=== PATIENT | male | born 1985 | race Caucasian/White ===

== ENCOUNTER → 2024-02-27 07:27 | Outpatient (REF) | payer BC, SELFPAY | LOC: HWRAD 07:27 | PROVIDERS: ATTENDING PHYSICIAN Internal Medicine Gastroenterology; FAMILY PHYSICIAN Family Medicine | DX: R11.0 Nausea (principal) | CPT/HCPCS: 76700 ==

== ENCOUNTER 2024-03-14 06:25 | Day surgery (SDC) | payer BC, SELFPAY | END 2024-03-14 10:31 | LOC: GI 06:25 | PROVIDERS: ATTENDING PHYSICIAN Internal Medicine Gastroenterology | DX: K31.7 Polyp of stomach and duodenum (principal); K22.89 Other specified disease of esophagus; K29.70 Gastritis, unspecified, without bleeding; K20.90 Esophagitis, unspecified without bleeding; K31.89 Other diseases of stomach and duodenum | CPT/HCPCS: 43239; 88305; 88342 ==

== ENCOUNTER 2024-03-16 08:30 | Emergency (ER) | payer BC, SELFPAY ==
[2024-03-16 08:49] VITALS: BP 129/87
[2024-03-16 09:11] LABS: % Basophils 1.1 % (0-2); % Eosinophils 0.9 % (0-6); % Immature Granulocytes 0.4 % (0-0.5); % Lymphocytes 24.7 % (20.5-51.1); % Monocytes 9.4 % (1.7-9.3); % Neutrophils 63.5 % (42.2-75.2); Absolute Basophils 0.1 10^3/uL (0-0.2); Absolute Lymphocytes 1.2 10^3/uL (1.2-3.4); Absolute Monocytes 0.4 10^3/uL (0.1-0.6); Hematocrit 38.4 % (39.0-52.0); Hemoglobin 14.1 g/dL (13.0-18.0); Mean Corp Hgb Conc. 36.7 g/dL (33.0-37.0); Mean Corpuscular Hgb 31.5 pg (27.0-31.0); Mean Corpuscular Volume 85.9 fL (80.0-94.0); Mean Platelet Volume 10.4 fL (7.4-10.4); Nucleated Red Blood Cells % 0 % (-); Platelet Count 176 10^3/uL (130-400); Red Blood Cell Count 4.47 10^6/uL (4.70-6.10); Red Cell Dist. Width 11.4 % (11.5-14.5); White Blood Cell Count 4.7 10^3/uL (4.8-10.8)
[2024-03-16 09:26] LABS: ALT (SGPT) 20 U/L (0-50); AST (SGOT) 22 U/L (17-59); Albumin 4.8 g/dl (3.5-5.0); Alkaline Phosphatase 64 U/L (38-126); Blood Urea Nitrogen 22 mg/dl (9-20); Calcium 9.4 mg/dl (8.4-10.2); Carbon Dioxide 31 mmol/L (22-30); Chloride 97 mmol/L (98-107); Glucose 92 mg/dl (70-99); Potassium 4.1 mmol/L (3.5-5.1); Sodium 137 mmol/L (135-145); Total Bilirubin 1.6 mg/dl (0.2-1.3); Total Protein 6.6 g/dl (6.3-8.2); eGFR > 60.00
[2024-03-16 11:40] VITALS: BP 112/70
[2024-03-16 12:21] VITALS: BP 126/69
[2024-03-16 12:24] VITALS: BMI 22.4
--- NOTE | 2024-03-16 12:35 | ED.GENMED ---
History of Present Illness
General
Chief Complaint: Rectal Bleeding
Source: patient
Exam Limitations: none
Time Seen by Provider: 03/16/24 11:58
Nursing documentation reviewed up to this point in time: agreed with
History of Present Illness
History of Present Illness:
39 y/o M with h/o gstritis on omeoprazole 20 mg bid
had endosocpy on 12/[address] lara for some previous epigastric pain that had resolved
he had no issues that day
on 12/13 in the morning he had a black tarry stool x 1. spoke with dr. lara who told him if it continued to come in
he had another BM today that was similar dark stool
no vomiting blood, wakness, pain, lightheadedness, near syncope, bleeding from anywhere else
Past History
Past History
ED Past Medical History: Other (HYDOCELE) and Other (substance abue on suboxone)
Social History
Tobacco: Non-smoker
Alcohol: Occasional
Drug: None
Living: with family
Review of Systems
Review of Systems
Allergies reviewed?: Yes
All Other Systems: Not applicable
Phy Exam
Physical Exam
Physical Exam:
GENERAL: Alert , in no apparent distress
EYE: pupils equal and reactive
NECK: Supple
ENT: o/p clr, mmm.
CARDIAC: Regular rate and rhythm .
LUNGS: Clear breath sounds bilaterally, no acute respiratory distress, no wheezes/rales/rhonchi
ABDOMEN: Soft, without focal tenderness, no r/g, no cvat, normal bowel sounds
rectal: no hemorrhoids
heme + dark brown stool
NEUROLOGICAL: Alert and oriented, no focal neuro deficits
SKIN: Warm and dry, skin intact.
MUSCULOSKELETAL: No edema, well perfused. neg nikita's sign
PSYCH: Normal and appropriate interaction.
Course
Orders/Labs/Results
Orders:
Orders
03/16/24 09:00
Complete Blood Count/With Diff Urgent
Comprehensive Metabolic Panel Urgent
Abnormal Lab Results
03/16/24
09:00
WBC 4.7 L 10^3/uL
(4.8-10.8)
RBC 4.47 L 10^6/uL
(4.70-6.10)
Hct 38.4 L %
(39.0-52.0)
MCH 31.5 H pg
(27.0-31.0)
RDW 11.4 L %
(11.5-14.5)
Monocytes % 9.4 H %
(1.7-9.3)
Chloride 97 L mmol/L
(98-107)
Carbon Dioxide 31 H mmol/L
(22-30)
BUN 22 H mg/dl
(9-20)
Total Bilirubin 1.6 H mg/dl
(0.2-1.3)
03/16/24 09:00
03/16/24 09:00
Vital Signs
Initial and Last Documented VS:
Initial Vital Signs
Temp Pulse Resp BP Pulse Ox
36.6 C 93 18 129/87 100
03/16/24 08:49 03/16/24 08:49 03/16/24 08:49 03/16/24 08:49 03/16/24 08:49
Last Documented Vital Signs
Temp Pulse Resp BP Pulse Ox
36.7 C 77 16 126/69 100
03/16/24 11:40 03/16/24 12:25 03/16/24 11:40 03/16/24 12:21 03/16/24 12:25
MDM/Problems Addressed
Differential Diagnosis Includes:
GI bleeding, gastritis
MDM/Problems Addressed:
39 y/o M with dark stool
after endoscopy
1 episode yeterday and 1 today
not signfiicant size
no pain
on PPI
d/w his GI who told him to increas the PPI for1 week 40 mg bid but pt did not do that yet
on exam
vitals stable
bun 22
hg stable
rectal heme pos dark brown stool
d/w Gi
since no active episodes, not large volume stable vitals and hg ok for d/c home
inc PPI as instructed
return precautions
*Critical Care Note
Total Time (30-74mins, 75-104mins- exclusive of procedures): Not Applicable
ED Attending Note
-
Portions of this chart may have been created with voice recognition software.� Occasional wrong word or��sound alike� substitutions may have occurred due to the inherent limitations of voice recognition software.
Discharge Plan
Departure
Patient Disposition: Home (Routine Discharge)
Date of Disposition: 03/16/24
Time of Disposition: 12:53
Patient with high blood pressure during this ER visit?: No
Condition: Fair
Covid-19: Not Applicable
Discharge Problem:
GI (gastrointestinal bleed)
Instructions: Gastrointestinal Bleeding (DC)
Prescriptions:
No Action
clonidine HCl 0.1 MG tablet
0.025 mg PO HS
omeprazole 20 mg Tablet,Delayed Release (Dr/Ec)
20 mg PO DAILY
Lion's Piotr Capsules
1 cap PO DAILY
cyanocobalamin (vitamin B-12) 500 mcg Tablet
500 mcg PO DAILY
cholecalciferol (vitamin D3) [Vitamin D3] 25 mcg (1,000 unit) Tablet
25 mcg PO DAILY
magnesium glycinate 100 mg Tablet
250 mg PO HS
ashwagandha extract 500 mg Capsule
250 mg PO DAILY
DGL 25-50 mg Tablet,Chewable
1 tab PO DAILY
[place] Gum Capsules
100 mg PO DAILY
Referrals:
Remy Anne MD [Family Provider] -
Winnie Verma MD [Active] - Follow up in 5-7 days
Activity Restrictions/Additional Instructions:
DR LARA SAID TO INCREASE YOUR OMEPRAZOLE TO 40 MG TWICE A DAY FOR 1 WEEK
THEN GO BACK TO 20 MG TWICE A DAY
YOUR BLOOD WORK WAS REASSURING
WATCH FOR MORE EPISODES: IF MORE FREQUENT OR LARGER VOLUME OR PAIN OR LIGHTHEADEDNESS THEN RETURN
HOPEFULY THIS IS SMALL AMOUNT OF RESIDUAL AND IT WILL STOP
RETURN FOR ANY CONCERNS
Interventions
Interventions:
*Risk Screen - Suicide Last Done: 03/16/24 08:49
*General Assessment Last Done: 03/16/24 08:49
*Neglect/Abuse Screening Last Done: 03/16/24 08:49
*ED COVID-19 Vaccine History Last Done: 03/16/24 12:25
*Nursing Disposition Last Done: 03/16/24 13:16
JC-Ncqybh-Loaglccuiq Assessment Last Done: 03/16/24 12:21
Discharge Date and Time
Discharge Date/Time: 03/16/24 13:16
Print Language: [place]
== END 2024-03-16 13:16 | disposition home or self-care (01) ==
LOC: EMR 08:30
PROVIDERS: EMERGENCY PHYSICIAN Emergency Medicine; FAMILY PHYSICIAN Family Medicine
DX: K92.1 Melena (principal)
CPT/HCPCS: 99283; 80053; 85025

== ENCOUNTER 2024-03-18 11:28 | Emergency (ER) | payer BC, SELFPAY ==
[2024-03-18 11:30] VITALS: BP 124/76
[2024-03-18 12:55] VITALS: BP 108/67
[2024-03-18 13:00] VITALS: BP 110/66
[2024-03-18 13:07] LABS: Hematocrit 36.2 % (39.0-52.0); Hemoglobin 13.1 g/dL (13.0-18.0); Mean Corp Hgb Conc. 36.2 g/dL (33.0-37.0); Mean Corpuscular Hgb 31.1 pg (27.0-31.0); Mean Platelet Volume 10.6 fL (7.4-10.4); Platelet Count 201 10^3/uL (130-400); Red Blood Cell Count 4.21 10^6/uL (4.70-6.10); Red Cell Dist. Width 11.5 % (11.5-14.5); White Blood Cell Count 7.3 10^3/uL (4.8-10.8)
[2024-03-18 13:16] LABS: INR 1.02; PT 13.7 Sec (11.4-14.6)
[2024-03-18 13:20] LABS: ALT (SGPT) 20 U/L (0-50); AST (SGOT) 21 U/L (17-59); Albumin 4.5 g/dl (3.5-5.0); Alkaline Phosphatase 64 U/L (38-126); Blood Urea Nitrogen 15 mg/dl (9-20); Calcium 9.2 mg/dl (8.4-10.2); Carbon Dioxide 31 mmol/L (22-30); Chloride 98 mmol/L (98-107); Glucose 97 mg/dl (70-99); Potassium 4.3 mmol/L (3.5-5.1); Sodium 138 mmol/L (135-145); Total Bilirubin 1.1 mg/dl (0.2-1.3); Total Protein 6.3 g/dl (6.3-8.2); eGFR > 60.00
--- NOTE | 2024-03-18 13:24 | ED.GENMED ---
History of Present Illness
General
Chief Complaint: Rectal Bleeding
Source: patient
Time Seen by Provider: 03/18/24 11:56
History of Present Illness
History of Present Illness:
39-year-old male with recently diagnosed gastritis, status post upper endoscopy also found to have gastric polyps that were biopsied, presenting back to the emergency department after being seen in the ER 2 days ago for darker stools following the
endoscopy. Patient states that today he felt a little bit more lightheaded and was concerned for worsening prompting him to come to the ER for further evaluation. Patient denies any abdominal pain, nausea, vomiting/hematemesis, generalized
weakness or fatigue. He denies any concurrent use of NSAIDs or anticoagulants.
Past History
Past History
ED Past Medical History: Other (HYDOCELE) and Other (substance abue on suboxone)
ED Past Surgical History: None
Social History
Tobacco: Non-smoker
Alcohol: Occasional
Drug: None
Personal: Single
Living: with family
Review of Systems
Review of Systems
All Other Systems: ROS reviewed and negative except as documented in HPI and ROS
Phy Exam
Physical Exam
Physical Exam:
GENERAL: Alert , in no apparent distress
EYE: clear conjunctiva b/l
HEAD: NCAT
ENT: mmm.
CARDIAC: Regular rate and rhythm .
LUNGS: Clear breath sounds bilaterally, no acute respiratory distress, no wheezes/rales/rhonchi
ABDOMEN: Soft, without focal tenderness, no r/g, no cvat
NEUROLOGICAL: Alert and oriented
SKIN: Warm and dry, skin intact.
MUSCULOSKELETAL: well perfused.
PSYCH: Normal and appropriate interaction.
Scores
Heart Failure Risk
Heart Failure Risk Score: Not Applicable
Heart Score for Chest Pain Patients
STEMI patient?: Not applicable
Withdrawal Assessment of Alcohol
Withdrawal Assessment Completed?: Not applicable
Course
Orders/Labs/Results
Orders:
Orders
03/18/24 12:46
Type+Screen Urgent
Complete Blood Count/No Diff Urgent
Comprehensive Metabolic Panel Urgent
PTT Urgent
Prothrombin Time Urgent
03/18/24 13:24
ABO2 Urgent
BBK Wristband Number:
Associate notified that ABO2 has been ordered: MELVA-ER
Date: 03/18/24
Time: 13:07
[place] Clerk ID: [id number]
Abnormal Lab Results
03/18/24
12:46
RBC 4.21 L 10^6/uL
(4.70-6.10)
Hct 36.2 L %
(39.0-52.0)
MCH 31.1 H pg
(27.0-31.0)
MPV 10.6 H fL
(7.4-10.4)
Carbon Dioxide 31 H mmol/L
(22-30)
03/18/24 12:46
03/18/24 12:46
Vital Signs
Initial and Last Documented VS:
Initial Vital Signs
Temp Pulse Resp BP Pulse Ox
98.4 F 112 18 124/76 100
03/18/24 11:30 03/18/24 11:30 03/18/24 11:30 03/18/24 11:30 03/18/24 11:30
Last Documented Vital Signs
Temp Pulse Resp BP Pulse Ox
98.4 F 81 10 110/66 100
03/18/24 11:30 03/18/24 13:15 03/18/24 13:15 03/18/24 13:00 03/18/24 13:15
MDM/Problems Addressed
Differential Diagnosis Includes:
Minor bleeding post gastric polyp biopsy, anemia, no concern for acute lower GI bleed
MDM/Problems Addressed:
39-year-old male presenting to the emergency department again for reevaluation after being seen 2 days ago for suspected post endoscopy biopsy site bleeding. Biopsy performed on March 14, on the patient had a hemoglobin of 14.1. He is
currently hemodynamically stable. Will recheck labs. Given patient is a bounce back to the emergency department will notify GI once labs return
*Pulse Oximetry
Patient hypoxic: no
*Critical Care Note
Total Time (30-74mins, 75-104mins- exclusive of procedures): Not Applicable
Data Reviewed
Review of Other/Old Records Reveals: Labs, Records and Testing
Source: patient and records
Patient Management
Escalation/DeEscalation of care consider admission/obs:
Patient's hemoglobin today is 13.1. He remains hemodynamically stable. GI team notified and states okay to be discharged home and follow-up with his primary GI as an outpatient. Patient was reassured that he is safe for discharge home. Counseled
on return precautions. Stable for discharge.
ED Attending Note
-
Portions of this chart may have been created with voice recognition software.� Occasional wrong word or��sound alike� substitutions may have occurred due to the inherent limitations of voice recognition software.
Discharge Plan
Departure
Patient Disposition: Home (Routine Discharge)
Date of Disposition: 03/18/24
Time of Disposition: 13:24
Patient with high blood pressure during this ER visit?: No
Discharge Problem:
Status post endoscopy
Instructions: Enteroscopy (DC)
Prescriptions:
No Action
clonidine HCl 0.1 MG tablet
0.025 mg PO HS
omeprazole 20 mg Tablet,Delayed Release (Dr/Ec)
20 mg PO DAILY
Lion's Piotr Capsules
1 cap PO DAILY
cyanocobalamin (vitamin B-12) 500 mcg Tablet
500 mcg PO DAILY
cholecalciferol (vitamin D3) [Vitamin D3] 25 mcg (1,000 unit) Tablet
25 mcg PO DAILY
magnesium glycinate 100 mg Tablet
250 mg PO HS
ashwagandha extract 500 mg Capsule
250 mg PO DAILY
DGL 25-50 mg Tablet,Chewable
1 tab PO DAILY
[place] Gum Capsules
100 mg PO DAILY
Referrals:
Remy Anne MD [Family Provider] -
Winnie Verma MD [Active] -
Interventions
Interventions:
*Risk Screen - Suicide Last Done: 03/18/24 11:30
*General Assessment Last Done: 03/18/24 11:30
*Neglect/Abuse Screening Last Done: 03/18/24 11:30
*ED COVID-19 Vaccine History Last Done: 03/18/24 11:30
Discharge Date and Time
Print Language: [place]
== END 2024-03-18 13:30 | disposition home or self-care (01) ==
LOC: EMR 11:28
PROVIDERS: Physician Assistant Medical; EMERGENCY PHYSICIAN Student in an Organized Health Care Education/Training Program; FAMILY PHYSICIAN Family Medicine
DX: K62.5 Hemorrhage of anus and rectum (principal); Z98.890 Other specified postprocedural states
CPT/HCPCS: 99283; 80053; 85027; 85610; 85730; 86850; 86900; 86901

== ENCOUNTER 2024-03-19 09:19 | Day surgery (SDC) | payer BC, SELFPAY | END 2024-03-19 15:18 | disposition home or self-care (01) | LOC: GI 09:19 | PROVIDERS: ATTENDING PHYSICIAN Internal Medicine Gastroenterology | DX: K26.4 Chronic or unspecified duodenal ulcer with hemorrhage (principal); K29.70 Gastritis, unspecified, without bleeding; K31.7 Polyp of stomach and duodenum; K21.9 Gastro-esophageal reflux disease without esophagitis; F11.11 Opioid abuse, in remission | CPT/HCPCS: 43235 ==

== ENCOUNTER 2024-07-20 06:24 | Day surgery (SDC) | payer BC, SELFPAY | END 2024-07-20 14:08 | disposition home or self-care (01) | LOC: GI 06:24 | PROVIDERS: ATTENDING PHYSICIAN Internal Medicine Gastroenterology | DX: D50.9 Iron deficiency anemia, unspecified (principal); K64.8 Other hemorrhoids | CPT/HCPCS: 45378 ==